=== PATIENT | female | born 1965 | race African-American/Black ===

== ENCOUNTER 2018-01-19 09:53 | Emergency (ER) | payer OTHER ==
[~2018-01-19] VITALS: Ht 160 cm; Wt 81.6 kg
[~2018-01-19 09:53] MED LIST: ENALAPRIL MALEA10 MG
== END 2018-01-19 16:09 | disposition home or self-care (01) ==
LOC: ER 09:53
DX: D25.9 Leiomyoma of uterus, unspecified (principal); D50.9 Iron deficiency anemia, unspecified

== ENCOUNTER 2021-07-07 10:11 | Emergency (ER) | payer OTHER ==
[~2021-07-07] VITALS: Ht 160 cm; Wt 81.6 kg
== END 2021-07-07 13:41 | disposition home or self-care (01) ==
LOC: ER 10:11
DX: R10.2 Pelvic and perineal pain (principal)